=== PATIENT | female | born 1990 | race Caucasian/White ===

== ENCOUNTER 2016-09-15 11:13 | Emergency (ER) | payer BC, OTHER ==
[2016-09-15 12:34] VITALS: BP 113/67
--- NOTE | 2016-09-15 12:48 | UC ---
Respiratory Complaint HPI - HPI Summary HPI Summary: 26 yo female with sinus pain and pressure x 3 weeks now with wheezing/using rescue inhaler no f/c no CP or SOB - History of Current Complaint Chief Complaint: UCGeneralIllness Stated Complaint: COUGH, CHEST CONGESTION Time Seen by Provider: 09/15/16 12:34 Hx Obtained From: Patient Hx Last Menstrual Period: 08/18/16 Onset/Duration: Gradual Onset, Lasting Weeks Timing: Constant Severity Initially: Mild Severity Currently: Moderate Pain Intensity: 2 Pain Scale Used: 0-10 Numeric Character: Cough: Nonproductive Aggravating Factors: Nothing Alleviating Factors: Bronchodilator Associated Signs And Symptoms: Positive: Wheezing, Nasal Congestion, Sinus Discomfort - Allergies/Home Medications Allergies/Adverse Reactions: Allergies Allergy/AdvReac Type Severity Reaction Status Date / Time Whey Allergy Difficulty Verified 09/15/16 12:25 Breathing/Wheezing Home Medications: Home Medications Fluticas/Salmet 45/21 (NF) [Advair HFA 45/21 (NF)] 2 puff BID 09/15/16 [History Confirmed 09/15/16] PMH/Surg Hx/FS Hx/Imm Hx Previously Healthy: Yes Endocrine History Of: Denies: Diabetes, Thyroid Disease, Hyperthyroidism, Hypothyroidism, Dyslipidemia Cardiovascular History Of: Denies: Cardiac Disorders, Hypertension, Pacemaker/ICD, Myocardial Infarction , Congestive Heart Failure, Atrial Fibrillation, Deep Vein Thrombosis, Bleeding Disorders Respiratory History Of: Reports: Asthma - W/ALBUTEROL. GI/ History Of: Denies: Gastroesophageal Reflux, Ulcer, Gastrointestinal Bleed, Gall Bladder Disease, Kidney Stones, Diverticulitis, Renal Disease, Urosepsis Neurological History Of: Denies: TIA, CVA, Dementia, Seizures, Migraine Psychological History Of: Reports: Depression - on meds. Denies: Anxiety, Bipolar Disorder, Schizophrenia, Post Traumatic Stress Disorder Cancer History Of: Denies: Lung Cancer, Colorectal Cancer, Breast Cancer, Prostate Cancer, Cervical Cancer Other History Of: Negative For: HIV, Hepatitis B, Hepatitis C, Anticoagulant Therapy - Surgical History Surgical History: Yes Surgery Procedure, Year, and Place: nasal fracture; teeth extracted - Family History Known Family History: Positive: Cardiac Disease, Hypertension, Diabetes Negative: Respiratory Disease - Social History Alcohol Use: Weekly Substance Use Type: None Smoking Status (MU): Never Smoked Tobacco - Immunization History Most Recent Influenza Vaccination: Not utd Review of Systems Constitutional: Negative Skin: Negative Eyes: Negative ENT: Nasal Discharge Respiratory: Cough Cardiovascular: Negative Gastrointestinal: Negative Genitourinary: Negative Motor: Negative Neurovascular: Negative Musculoskeletal: Negative Neurological: Negative Psychological: Negative All Other Systems Reviewed And Are Negative: Yes Physical Exam Triage Information Reviewed: Yes Appearance: Well-Appearing, No Pain Distress, Well-Nourished Vital Signs: Initial Vital Signs Temp 98.6 F 09/15/16 12:28 Pulse 80 09/15/16 12:28 Resp 20 09/15/16 12:28 BP 113/67 09/15/16 12:28 Pulse Ox 100 09/15/16 12:28 Vital Signs Reviewed: Yes Eyes: Positive: Conjunctiva Clear ENT: Positive: Normal ENT inspection, Hearing grossly normal, Nasal congestion, Nasal drainage, TMs normal, Other: - bilat max sinus tenderness Neck exam: Normal Neck: Positive: Supple Respiratory: Positive: Lungs clear, Normal breath sounds, No respiratory distress, No accessory muscle use, Other: - wheeze with forced expiration Cardiovascular: Positive: RRR, No Murmur Musculoskeletal: Positive: ROM Intact, No Edema Neurological Exam: Normal Psychological Exam: Normal Skin Exam: Normal UC Diagnostic Evaluation - Laboratory O2 Sat by Pulse Oximetry: 100 - normal/not hypoxuc Respiratory Course/Dx - Differential Dx/Diagnosis Provider Diagnoses: acute sinusitis. bronchospasm Discharge - Discharge Plan Condition: Stable Disposition: HOME Prescriptions: Amoxicillin (*) 875 mg PO BID #20 tab Prednisone [Deltasone] 40 mg PO DAILY #10 tab Patient Education Materials: Sinusitis (ED), Bronchospasm (ED) Referrals: Lowell Garcia NP [Primary Care Provider] - 5 Days (if not better) Additional Instructions: recheck for new or worsening symptoms warm facial compresses saline nasal spray twice daily
== END 2016-09-15 12:58 | disposition home or self-care (01) ==
LOC: UCCORT 11:13
DX: J01.90 Acute sinusitis, unspecified (principal); J98.01 Acute bronchospasm; J45.909 Unspecified asthma, uncomplicated; Z91.018 Allergy to other foods
CPT/HCPCS: 99212; G0463

== ENCOUNTER 2017-04-17 11:27 | Emergency (ER) | payer BC ==
[2017-04-17 12:15] VITALS: BP 135/75
--- NOTE | 2017-04-17 12:26 | UC ---
Throat Pain/Nasal Celestino HPI - HPI Summary HPI Summary: 26 year old female with URI Sx and sinus pressure for > 2 weeks.Cough for 3 weeks, cough now worse and in chest, sore throat last night is gone, head congestion and headache [ End ] - History of Current Complaint Chief Complaint: UCRespiratory Stated Complaint: COUGH,CONGESTION,SORE THROAT Time Seen by Provider: 04/17/17 12:16 Hx Obtained From: Patient Hx Last Menstrual Period: 2 weeks Onset/Duration: Gradual Onset Severity: Moderate Associated Signs & Symptoms: Positive: Negative, Sinus Discomfort, Nasal Discharge - Allergies/Home Medications Allergies/Adverse Reactions: Allergies Allergy/AdvReac Type Severity Reaction Status Date / Time Whey Allergy Difficulty Verified 04/17/17 12:15 Breathing/Wheezing environment Allergy Difficulty Uncoded 04/17/17 12:16 Breathing/Wheezing Home Medications: Home Medications Desloratidine (NF) [Clarinex (NF)] 5 mg PO DAILY 04/17/17 [History Confirmed 11/27] Levonorgestrel & Eth Estradiol [Marlissa 0.15-30 mg-Mcg] 1 tab PO QAM 04/17/17 [ History Confirmed 04/17/17] PMH/Surg Hx/FS Hx/Imm Hx Previously Healthy: Yes Other History Of: Negative For: HIV, Hepatitis B, Hepatitis C, Anticoagulant Therapy - Surgical History Surgical History: Yes Surgery Procedure, Year, and Place: nasal fracture; teeth extracted - Family History Known Family History: Positive: Cardiac Disease, Hypertension, Diabetes Negative: Respiratory Disease - Social History Occupation: Employed Full-time Lives: With Family Alcohol Use: Weekly Substance Use Type: None Smoking Status (MU): Never Smoked Tobacco - Immunization History Most Recent Influenza Vaccination: Not utd Review of Systems Constitutional: Fatigue ENT: Ear Ache, Nasal Discharge, Sinus Congestion, Sinus Pain/Tenderness Is Patient Immunocompromised?: No All Other Systems Reviewed And Are Negative: Yes Physical Exam Triage Information Reviewed: Yes Appearance: Well-Appearing, No Pain Distress, Well-Nourished Vital Signs: Initial Vital Signs Temp 97.8 F 04/17/17 12:07 Pulse 103 04/17/17 12:07 Resp 20 04/17/17 12:07 BP 135/75 04/17/17 12:07 Pulse Ox 99 04/17/17 12:07 Vital Signs Reviewed: Yes Eye Exam: Normal ENT Exam: Normal Dental Exam: Normal Neck exam: Normal Neck: Positive: 1 Respiratory Exam: Normal Respiratory: Positive: Chest non-tender, Crackles - RLL, Wheezing - b/l lungs Cardiovascular Exam: Normal Musculoskeletal Exam: Normal Neurological Exam: Normal Psychological Exam: Normal Skin Exam: Normal Throat Pain/Nasal Course/Dx - Course Course Of Treatment: double sickening, concern if sx not addressed with abx then may progress to pneumonia - Differential Dx/Diagnosis Differential Diagnosis/HQI/PQRI: Pharyngitis, Sinusitis, Tonsillitis, URI Provider Diagnoses: Bronchitis Discharge - Discharge Plan Condition: Good Disposition: HOME Prescriptions: Amoxicillin/Clavulanate TAB* [Augmentin TAB 875*] 875 mg PO BID #20 tab Benzonatate [TESSALON 200 MG CAP] 200 mg PO TID #20 cap Patient Education Materials: Acute Bronchitis (ED) Forms: *Work Release Referrals: Lowell Garcia, [employer] [Primary Care Provider] - 4 Days
== END 2017-04-17 12:42 | disposition home or self-care (01) ==
LOC: UCCORT 11:27
DX: J40 Bronchitis, not specified as acute or chronic (principal); J30.2 Other seasonal allergic rhinitis; Z91.02 Food additives allergy status
CPT/HCPCS: 99212; G0463

== ENCOUNTER 2017-11-17 15:10 | Emergency (ER) | payer BC ==
--- NOTE | 2017-11-17 15:55 | UC ---
Ear Complaint HPI - HPI Summary HPI Summary: Pt presents with right ear pain for the last 1.5 weeks. Worst today. She does have asthma and seasonal allergies - admits she has had some sinus congestion and dry coughing lately. Feels like there is "fluid" in her right ear. Denies fever, chills, sore throat, SOB, chest pain. - History of Current Complaint Stated Complaint: EAR ACHE Time Seen by Provider: 11/17/17 15:54 Hx Obtained From: Patient Hx Last Menstrual Period: 2 weeks Onset/Duration: Gradual Onset Severity Initially: Mild Severity Currently: Moderate Pain Intensity: 4 Pain Scale Used: 0-10 Numeric - Allergies/Home Medications Allergies/Adverse Reactions: Allergies Allergy/AdvReac Type Severity Reaction Status Date / Time MS Whey [Whey] Allergy Difficulty Verified 11/17/17 15:55 Breathing/Wheezing environment Allergy Difficulty Uncoded 11/17/17 15:55 Breathing/Wheezing Home Medications: Home Medications Ibuprofen [Wal-Profen] 400 mg PO Q8HR PRN 11/17/17 [History Confirmed 11/17/17] LoraTADine TAB(NF) [Claritin 10 MG TAB(NF)] 10 mg PO DAILY 11/17/17 [History Confirmed 11/17/17] PMH/Surg Hx/FS Hx/Imm Hx - Additional Past Medical History Additional PMH: Seasonal allergies Previously Healthy: Yes Respiratory History: Asthma Other History Of: Negative For: HIV, Hepatitis B, Hepatitis C, Anticoagulant Therapy - Surgical History Surgical History: Yes Surgery Procedure, Year, and Place: nasal fracture; teeth extracted - Family History Known Family History: Positive: Cardiac Disease, Hypertension, Diabetes Negative: Respiratory Disease - Social History Occupation: Employed Full-time Lives: With Family Alcohol Use: Weekly Substance Use Type: None Smoking Status (MU): Never Smoked Tobacco - Immunization History Most Recent Influenza Vaccination: Not utd Review of Systems Constitutional: Negative Skin: Negative Eyes: Negative ENT: Ear Ache Respiratory: Negative Cardiovascular: Negative Gastrointestinal: Negative Neurovascular: Negative Neurological: Negative Psychological: Negative All Other Systems Reviewed And Are Negative: Yes Physical Exam - Summary Physical Exam Summary: GENERAL: NAD. WDWN. No pain distress. SKIN: No rashes, sores, lesions, or open wounds. HEENT: Head: AT/NC Eyes: EOM intact. Conjunctiva clear without inflammation or discharge. Ears: Hearing grossly normal. Right TM with mild erythema and bulging. No canal edema or drainage. Nose: Nasal mucosa pink and moist. NTTP maxillary and frontal sinus. Throat: Posterior oropharynx without exudates, erythema, or tonsillar enlargement. Uvula midline. NECK: Supple. Nontender. No lymphadenopathy. CHEST: CTAB. No r/r/w. No accessory muscle use. Breathing comfortably and in no distress. CV: RRR. Without m/r/g. Pulses intact. Brisk cap refill. NEURO: Alert. CN II-XII grossly intact. PSYCH: Age appropriate behavior. Triage Information Reviewed: Yes Ear Complaint Course/Dx - Course Course Of Treatment: Right otitis media - advised to try OTC nasonex in addition to antibiotic for likely eustacian tube dysfunction. - Differential Dx/Diagnosis Provider Diagnoses: Right otitis media Discharge - Sign-Out/Discharge Documenting (check all that apply): Discharge/Admit/Transfer - Discharge Plan Condition: Stable Disposition: HOME Prescriptions: Amoxicillin PO (*) [Amoxicillin 500 MG CAP*] 500 mg PO Q12H #20 cap Patient Education Materials: Ear Infection (ED) Referrals: Lowell Garcia NP [Primary Care Provider] - Additional Instructions: If you develop a fever, shortness of breath, chest pain, new or worsening symptoms - please call your PCP or go to the ED. - Billing Disposition and Condition Condition: STABLE Disposition: HOME
[2017-11-17 16:01] VITALS: BP 120/69
== END 2017-11-17 16:20 | disposition home or self-care (01) ==
LOC: UCEAST 15:10
DX: H66.91 Otitis media, unspecified, right ear (principal); J45.909 Unspecified asthma, uncomplicated
CPT/HCPCS: 99202; G0463